=== PATIENT | male | born 1965 | race African-American/Black ===

== ENCOUNTER 2016-12-01 11:44 | Emergency (ER) | payer OTHER ==
--- NOTE | ~2016-12-01 | CR20 ---
[facility]. [facility] A Service of [facility] & [facility] RADIOLOGY TEXT RESULTS PATIENT: STEFANIA DUBON LOCATION: SED : 69 UNIT #: [id number] AGE: [address]: JOAQUIN JERNIGAN SEX: M ORDER DR: [id number] [place] [id number] E MR#: [id number] Acc #: [id number] NAME: STEFANIA DUBON. : 1965 SEX: M STUDY DATE/TIME: 12/01/2016 11:55 UNIT: SED ROOM: STUDY DESCRIPTION: CR Ankle Min 3 Views Lt Attending Physician: Joaquin Jernigan Ordering Physician: Joaquin Jernigan Primary Care Physician: Primary Care Physician No MEDICAL IMAGING REPORT This report is preliminary unless electronic signature is present. EXAM Left ankle HISTORY Left ankle pain after twisting injury 30 minutes ago. FINDINGS AP, lateral, and oblique projections of the ankle show satisfactory integrity of the joint mortise with a smooth articular surface. There is no identifiable fracture, dislocation, or radiopaque foreign body. IMPRESSION Normal left ankle. Dictated by... Bradly Mane M.D. THIS IS AN ELECTRONICALLY VERIFIED REPORT Bradly Mane M.D. at 12/01/2016 3:38 PM Catina TD: 12/01/2016 15:00 JOB #: [id number] MEDICAL IMAGING REPORT Page 1 of 1
[~2016-12-01 11:44] MED LIST: ANTIBIOTIC; MOTRIN600 M2 PO; NORCO1 TAB 10/3 PO; PREDNISONE PO; ROBAXIN 750750 M1 PO
[2016-12-01] MEDS ORDERED: NO MEDICATIONS (11:46)
== END 2016-12-01 12:40 | disposition home or self-care (01) ==
LOC: SED 11:44
DX: S93.402A Sprain of unspecified ligament of left ankle, initial encounter (principal); F17.200 Nicotine dependence, unspecified, uncomplicated; X50.1XXA Overexertion from prolonged static or awkward postures, initial encounter; Y92.69 Other specified industrial and construction area as the place of occurrence of the external cause; Y99.0 Civilian activity done for income or pay
CPT/HCPCS: 29540; 73610; 99283